=== PATIENT | female | born 1940 | race Caucasian/White ===

== ENCOUNTER → 2018-09-01 06:00 | Outpatient (CLI) | payer OTHER ==
[~2018-09-01 06:00] MED LIST: ATENOLOL100 MG PO; BENTY PO; CALTRATE 600+D1 EAC1 PO; CLARITIN10 M1 PO; COZAAR50 MG PO; FISH OIL 1,2001 EAC4 PO; GABAPENTIN100 MG PO; LEVOXYL88 MCG PO; METFORMIN HCL500 MG PO; PRAVASTATIN SOD20 MG PO; TUMERERIC PO
== END | disposition home or self-care (01) ==
LOC: LAB 06:00 → ADM 13:00 → CIR.AMB 09-09 10:15 → EDSTATUS 09-09 13:00 → CIR.AMB 09-09 13:00
DX: K64.2 Third degree hemorrhoids (principal); K64.4 Residual hemorrhoidal skin tags; K92.2 Gastrointestinal hemorrhage, unspecified; Z01.812 Encounter for preprocedural laboratory examination; R82.79 Other abnormal findings on microbiological examination of urine

== ENCOUNTER 2019-01-20 07:35 | Day surgery (SDC) | payer OTHER | END 2019-01-20 18:15 | disposition home or self-care (01) | LOC: CIR.AMB 07:35 | DX: K64.8 Other hemorrhoids (principal); K64.4 Residual hemorrhoidal skin tags ==